=== PATIENT | male | born 1985 | race Caucasian/White ===

== ENCOUNTER 2022-11-07 09:33 | Emergency (ER) | payer OTHER, SELFPAY ==
[2022-11-07 09:34] VITALS: BP 121/78; PULSE 84; RESP 16; TEMP 36.6; O2SAT 98; BMI 25.5
--- NOTE | 2022-11-07 10:45 | EX.ED.DYSGE1 ---
HPI History of Present Illness Chief Complaint: GI Bleed Informant: patient Narrative Narrative: 37-year-old male presenting to the emergency room with 2 complaints. The first is that since Monday he has had nasal drainage originally on the left now bilaterally. He describes it as greenish. He notes postnasal drip. He states that he typically gets a sinus infection that requires antibiotics once a year for which she sees his primary care doctor. He denies any teeth pain or fever. No prior nasal surgeries. His second issue is that he has had 2 episodes of bright red blood per rectum with bowel movements. He states he typically will sit on the toilet for approximately 15 minutes before completion. The past 2 bowel movements he has had bright red blood on the tissue and in the toilet water. He denies any rectal pain. He denies any history of hemorrhoidal or diverticular disease. He is not on any blood thinners. No genetic issues. No history of colitis. He also denies any history of AAA repair. PFSH PFSH Home Medications amoxicillin 875 mg-potassium clavulanate 125 mg tablet 875 mg (0.875 x 875-125 mg) PO Q12H #20 TABLETS 11/07/22 [Rx Last Taken Unknown] Allergy/AdvReac Type Severity Reaction Status Date / Time No Known Allergies Allergy Verified 11/07/22 09:35 Social History Smoking Status: Never smoker ROS ROS ED Constitutional Constitutional ED: Denies chills or weight loss Eyes Eyes: Denies change in vision or diplopia ENT ENT ED: Reports rhinorrhea and other Details: Postnasal drip bilateral facial pain ; Denies ear pain or sore throat Cardiovascular Cardiovascular: Denies chest pain, orthopnea, palpitations or racing heartbeat Respiratory/Chest Respiratory/Chest: Denies cough, dyspnea or orthopnea Gastrointestinal Gastrointestinal: Reports other Details: Bright red blood per rectum ; Denies abdominal pain, diarrhea, nausea or vomiting Genitourinary Genitourinary ED: Denies dysuria, hematuria or urinary frequency Musculoskeletal Musculoskeletal: Denies arthralgias or myalgias Integumentary Denies abscess or rash Neurologic Neurologic: Denies headache(s) or weakness Psychiatric Psychiatric: Denies anxiety, depression, suicidal ideation or suicidal thoughts Endocrine Endocrinology: Denies polydipsia, polyphagia or polyuria Allergic/Immunologic Allergic/Immunologic ED: Denies mouth swelling, tongue swelling or urticaria EXAM Physical Exam Const Vital Signs: 11/07/22 09:34 Temperature 97.8 F Temperature Source Temporal Pulse Rate 84 Respiratory Rate 16 Blood Pressure 121/78 H Blood Pressure Mean 92 Pulse Ox 98 Oxygen Delivery Method Room Air Positive well nourished and well developed General Appearance ED: well developed HEENT Reports normocephalic, head/scalp atraumatic and moist mucous membranes Eyes PERRL and EOMs intact bilaterally Neck no lymphadenopathy, supple and no JVD Resp normal respiratory effort and clear to auscultation bilaterally Cardio regular rate, regular rhythm and no murmurs GI normal to inspection, nondistended, normoactive bowel sounds and non-tender Palpation: soft Narrative: Rectal examination reveals no external hemorrhoids. No bright red blood on the glove. No pain during examination. Back/Spine no CVA tenderness and normal ROM Extremity normal to inspection General Extremety ED: Negative for edema General Extremity: Negative for edema Neuro oriented x3 and CN's II-XII intact bilaterally Sensorium / Orientation: alert Motor Exam: strength 5/5 throughout Psych mental status grossly normal Mood & Affect: Negative for depressed or tearful Skin no rashes or lesions noted and no wounds MDM MDM MDM Narrative Medical decision making narrative: Patient will be started on Augmentin for his sinus infection. Though most likely viral given his reported history we will treat. Based on his examination and his history of bright red blood per the rectum is most likely internal hemorrhoidal. We talked about stool softener and limiting how much time he spends on the commode. If he continues to have issues she should follow-up with either gastroenterology or surgery (referrals given). Patient notes understanding as well as return instructions Discharge Plan Triage Chief Complaint: GI Bleed ED Provider: Barrett Huntley Dx/Rx/DC Orders Clinical Impression: Sinusitis, Acute lower GI bleeding Instructions: ED Hemorrhoids Prescriptions: New amoxicillin-pot clavulanate [amoxicillin-pot clavulanate] 875-125 mg tablet 875 mg PO Q12H Qty: 20 0RF Primary Care Provider: Care Physician,No Primary Referrals: Surinder Bonner MD [Med Staff - Active Staff] - As Needed (For surgical referral if needed for continued rectal bleeding) Friend,Doug, DO [Med Staff - Active Staff] - As Needed (If continued rectal bleeding and the need of gastroenterology evaluation)
[2022-11-07 10:55] LABS: Hematocrit 45.5 % (40-54); Hemoglobin 14.8 g/dL (13.0-16.5)
[2022-11-07 11:18] VITALS: BP 116/84; PULSE 72; RESP 16; O2SAT 99
== END 2022-11-07 11:19 | disposition home or self-care (01) ==
LOC: ED 10:53
PROVIDERS: Emergency Provider Emergency Medicine; Visit Provider Emergency Medicine
DX: J32.9 Chronic sinusitis, unspecified (principal); K92.2 Gastrointestinal hemorrhage, unspecified
CPT/HCPCS: 85014; 85018; 99282; A4216